=== PATIENT | male | born 1990 | race Two or more races ===

== ENCOUNTER 2016-12-24 23:58 | Emergency (ER) | payer OTHER ==
[~2016-12-24] VITALS: Ht 162.6 cm; Wt 75.4 kg
[2016-12-25 00:03] VITALS: BP 118/80
[2016-12-25] MEDS ORDERED: IBUPROFEN 200 MG TABLET ONE (00:52)
[2016-12-25] MEDS ORDERED: IBUPROFEN 200 MG TABLET PO ONE (01:00)
== END 2016-12-25 01:12 | disposition home or self-care (01) ==
LOC: ED 23:59
DX: S33.5XXA Sprain of ligaments of lumbar spine, initial encounter (principal); S19.9XXA Unspecified injury of neck, initial encounter; M79.605 Pain in left leg; V49.9XXA Car occupant (driver) (passenger) injured in unspecified traffic accident, initial encounter; Y93.89 Activity, other specified; Y92.89 Other specified places as the place of occurrence of the external cause; Y99.8 Other external cause status
CPT/HCPCS: 99283